=== PATIENT | female | born 1965 | race African-American/Black ===

== ENCOUNTER 2016-11-04 11:25 | Emergency (ER) | payer SELFPAY ==
[~2016-11-04] VITALS: Ht 172.7 cm; Wt 70.3 kg
[2016-11-04] MEDS ORDERED: [UNRECOGNIZED DRUG - REMARK] (11:43)
[2016-11-04] MEDS ORDERED: [UNRECOGNIZED DRUG - REMARK] (11:43)
--- NOTE | 2016-11-04 12:08 | NUR ---
PT IS IN ROOM #2B. DR JOSÉ EVALUATED THE PT.
--- NOTE | 2016-11-04 12:25 | NUR ---
PT REFUSED TORADOL [address] JOSÉ WAS NOTIFIED. MEDICATION WAS WASTED.
--- NOTE | 2016-11-04 12:35 | NUR ---
PT REFUSED EKG, CT SCAN AND CHEST X-RAY. DR JOSÉ WAS NOTIFIED. PT STATED SHE DOES NOT WANT TO STAY IN ER ANY MORE AND ELOPED. DR JOSÉ WAS NOTIFIED.
== END 2016-11-04 12:39 | disposition left against medical advice (07) ==
LOC: ER 11:32
DX: R10.30 Lower abdominal pain, unspecified (principal); Z88.2 Allergy status to sulfonamides; Z88.6 Allergy status to analgesic agent; E28.2 Polycystic ovarian syndrome; Z90.710 Acquired absence of both cervix and uterus
CPT/HCPCS: 93005; A4663; J1885; J2765; J7030